=== PATIENT | female | born 1965 | race Caucasian/White ===

== ENCOUNTER → 2016-11-11 | Outpatient (CLI) | payer OTHER | LOC: BRMIMAGING 14:38 | PROVIDERS: ATTEND Family Medicine | DX: Z01.818 Encounter for other preprocedural examination (principal); I51.7 Cardiomegaly; E66.9 Obesity, unspecified | CPT/HCPCS: 71020-PO ==

== ENCOUNTER → 2016-11-13 | Day surgery (SDC) | payer OTHER ==
[~2016-11-13] MED LIST: BACITRACIN 50,000 UNITS/10 ML SYR IRR ONE; BUPIVACAINE 0.25% 30 ML SDV ONE; BUPIVACAINE/EPI 0.25% 30 ML SDV ONE; CEFAZOLIN 2 GM/DEXTROSE/100 ML BAG IV ONE; CHLORHEXIDINE GLUC HIBICLENS 118 ML BTL TP ONE; DEXAMETHASONE 10 MG/ML VIAL IVP ONE; DEXAMETHASONE 10 MG/ML VIAL ONE; LIDOCAINE 1% 5 ML SDV ID PRN; LIDOCAINE 1% 5 ML SDV ONE; LR 1,000 ML IV ONE; THROMBIN (RECOMBINANT) 5,000 UNIT VIAL TP ONE; ceFAZolin 3 GM in D5W 100 ML IV ONE; fentaNYL 100 MCG/2 ML INJ IT ONE; morphINE PF 5 MG/10 ML INJ IT ONE
[2016-11-13 12:22] LABS: % IMMATURE GRANULYOCYTES 0.6 % (0.0-1.1); ABSOLUTE IMMATURE GRANULOCYTES 0.08 10^3/uL (0.00-0.10); ADD DIFF? NO; ADD MORPH? NO; ADD SCAN? NO; ATYPICAL LYMPHOCYTE FLAG 0 (0-99); FRAGMENT RBC FLAG 0 (0-99); HEMATOCRIT 31.7 % (38.0-47.0); HEMOGLOBIN 10.6 g/dL (12.6-16.3); LEFT SHIFT FLG 0 (0-99); LIPEMIA HEMOLYSIS FLAG 80 (0-99); MEAN CELL HEMOGLOBIN 28.6 pg (27.9-34.1); MEAN CELL HEMOGLOBIN CONCENTR. 33.4 g/dL (32.4-36.7); MEAN CELL VOLUME 85.4 fL (81.5-99.8); MEAN PLATELET VOLUME 10.3 fL (8.7-11.7); PLATELET CLUMPS FLAG 0 (0-99); PLATELET COUNT 336 10^3/uL (150-400); RED BLOOD CELL COUNT 3.71 10^6/uL (4.18-5.33); RED CELL DISTRIBUTION WIDTH 14.6 % (11.5-15.2)
[2016-11-13 12:31] LABS: ANION GAP 14 mEq/L (8-16); CALCIUM 7.9 mg/dL (8.5-10.4); CARBON DIOXIDE 31 mEq/l (22-31); CHLORIDE 85 mEq/L (97-110); CREATININE 1.6 mg/dL (0.6-1.0); GLOMERULAR FILTRATION RATE 34; GLUCOSE 336 mg/dL (70-100); SODIUM 130 mEq/L (134-144)
[2016-11-13 12:50] LABS: POTASSIUM 2.7 mEq/L (3.5-5.2)
== END | disposition home or self-care (01) ==
LOC: UNDOADMIN 11:14 → F3N 11:14 → FSGY 11:14 → EDSTATUS 12:45
PROVIDERS: ATTEND Neurological Surgery
DX: Z53.09 Procedure and treatment not carried out because of other contraindication (principal); M51.36 Other intervertebral disc degeneration, lumbar region; Z98.1 Arthrodesis status; G47.33 Obstructive sleep apnea (adult) (pediatric); I10 Essential (primary) hypertension; E89.0 Postprocedural hypothyroidism; Z93.4 Other artificial openings of gastrointestinal tract status; Z85.850 Personal history of malignant neoplasm of thyroid; E11.42 Type 2 diabetes mellitus with diabetic polyneuropathy; Z79.4 Long term (current) use of insulin; E66.2 Morbid (severe) obesity with alveolar hypoventilation; Z99.89 Dependence on other enabling machines and devices; R60.1 Generalized edema; F33.9 Major depressive disorder, recurrent, unspecified; Z68.43 Body mass index [BMI] 50.0-59.9, adult
CPT/HCPCS: J0690

== ENCOUNTER 2016-11-24 12:27 | Inpatient (IN) | payer OTHER ==
--- NOTE | 2016-11-24 13:05 | EDPHY ---
H & P Stated Complaint: increasing sob/o2 requirement/palpitations/gained 30 lbs Time Seen by Provider: 11/24/16 13:01 - Personal History LMP (Females 10-55): Over 28 Days Ago Current Tetanus/Diphtheria Vaccine: Yes - Medical/Surgical History Hx Asthma: No Hx Chronic Respiratory Disease: Yes Hx Diabetes: Yes Hx Cardiac Disease: No Hx Renal Disease: No Hx Cirrhosis: No Hx Alcoholism: No Hx HIV/AIDS: No Hx Splenectomy or Spleen Trauma: No Other PMH: uterine ablation/diabetic/back pain/surgery - Social History Smoking Status: Never smoked Constitutional: Initial Vital Signs Temperature (C) 36.7 C 11/24/16 12:41 Heart Rate 108 H 11/24/16 12:41 Respiratory Rate 28 H 11/24/16 12:41 Blood Pressure 109/52 L 11/24/16 12:41 O2 Sat (%) 96 11/24/16 12:41 O2 Delivery Mode Nasal Cannula O2 (L/minute) 3 Allergies/Adverse Reactions: azithromycin [From Zithromax] Allergy (Verified 11/24/16 12:38) Rash erythromycin base Allergy (Verified 11/24/16 12:38) Rash metoclopramide HCl [From Reglan] Allergy (Verified 11/24/16 12:38) MUSCLE TWITCHES prochlorperazine [From Compazine] Allergy (Verified 11/24/16 12:38) HYPER/ANXIOUS prochlorperazine edisylate [From Compazine] Allergy (Verified 11/24/16 12:38) HYPER/ANXIOUS prochlorperazine maleate [From Compazine] Allergy (Verified 11/24/16 12:38) HYPER/ANXIOUS Home Medications: Medication Instructions Recorded Cholecalciferol Vit D3 [Vitamin D3 50,000 unit PO MOTH 11/17/16 (*)] DULoxetine [Cymbalta 30 MG (*)] 30 mg PO DAILY@12 11/17/16 DULoxetine [Cymbalta 60 MG (*)] 60 mg PO DAILY@12 11/17/16 Hydrocodone/Acetaminophen 7.5-325 15 ml PO Q4H PRN 11/17/16 Mg/ 15 Ml Syrup Insulin Aspart [Novolog Flexpen] 5 - 40 unit SQ Q4H PRN 11/17/16 Insulin Degludec [Tresiba 320 unit SQ DAILY 11/17/16 Flextouch U-200] LORazepam [Ativan (*)] 0.5 mg PO Q6H PRN 11/17/16 Levothyroxine [Synthroid 150 mcg 450 mcg PO DAILY06 11/17/16 (*)] Liothyronine Sodium [Cytomel 5 mcg 5 mcg PO DAILY 11/17/16 (*)] Losartan Potassium [Cozaar] 100 mg PO DAILY 11/17/16 Metolazone [Zaroxolyn 2.5 mg (RX)] 2.5 mg PO DAILY 11/17/16 Omeprazole 40 mg PO BID 11/17/16 Potassium Citrate/Citric Acid 15 ml PO 5XD 11/17/16 [Virtrate-K Solution] Promethazine HCl 25 mg PO Q4H 11/17/16 Torsemide [Demadex] 80 mg PO BID 11/17/16 amLODIPine BESYLATE [Norvasc 5 mg 5 mg PO DAILY 11/17/16 (*)] Medical Decision Making ED Course/Re-evaluation: CHIEF COMPLAINT: Dyspnea, rapid heart rate, 30lb weight gain HISTORY OF PRESENT ILLNESS: The patient is a 51 y/o female complaining of shortness of breath, rapid heart rate, and 30lb weight gain in the last week. She has a history of morbid obesity, diabetes, and peripheral edema. She reports she was scheduled for a back surgery here 2 weeks ago, but her potassium was low so it was rescheduled and her PCP increased her potassium dosing. She has not changed her diuretic medications and cannot identify any other obvious preceding changes in the last week that would lead to increasing edema. She reports a similar episode in March 2016 with no obvious cause. REVIEW OF SYSTEMS: A 10 point review of systems was performed and is negative with the exception of the elements mentioned in the history of present illness. PHYSICAL EXAM: HR, BP, O2 Sat, RR. Temp noted General Appearance: Alert, well hydrated, appropriate, and morbidly obese. Head: Atraumatic without scalp tenderness or obvious injury Eyes: Pupils equal, round, reactive to light and accommodation, EOMI, no trauma , no injection. Ears: Clear bilaterally, no perforation, normal landmarks Nose: Atraumatic, no rhinorrhea, clear. Throat: There is no erythema or exudates, no lesions, normal tonsils, mucus membranes moist. Neck: Supple, 2+ carotid upstroke, nontender, no lymphadenopathy. Respiratory: No retractions, no distress, no wheezes, and no accessory muscle use. Lungs are clear to auscultation bilaterally. Cardiovascular: Regular rate and rhythm, no murmurs, rubs, or gallops. Bilateral carotid, radial, dorsalis pedis, and posterior tibial pulses intact. Good capillary refill all extremities. Gastrointestinal: Abdomen is soft, nontender, non-distended, no masses, no rebound, no guarding, no peritoneal signs. Large abdomen. Musculoskeletal: Normal active ROM of all extremities, atraumatic. Neurological: Alert, appropriate, and interactive. The patient has normal DTRs and non-focal cranial nerves, motor, sensory, and cerebellar exam. Skin: No rashes, good turgor, no nodules on palpation. 2+ pitting edema to both legs; anasarca; cellulitis to bilateral lower legs. Past medical history: Morbid obesity, diabetes, peripheral edema, back pain, one episode atrial fibrillation Past surgical history: gastric bypass, uterine ablation Family history: Noncontributory Social history: Lives in [place] DIAGNOSTICS/PROCEDURES/CRITICAL CARE TIME: The 12 lead EKG was interpreted by myself. See hard copy and/or "tracemaster" electronic copy for interpretation. Study: Chest x-ray Indication: Dyspnea Results: Chest x-ray was obtained. The results of the study are cardiomegaly. The study was read by the radiologist, Dr. Zepeda. I viewed the images myself on the PACS system. ECHOCARDIOGRAPHY: Indication: chest pain,SOB Procedure: Limited transthoracic 2D echocardiogram. A limited transthoracic echocardiogram was performed by the echocardiogram technologists and interpreted by Dr. Cm. Results pending. DIFFERENTIAL DIAGNOSIS: The differential diagnosis for the patient's leg swelling included but was not limited to hypoalbuminemia, congestive heart failure, cor pulmonale, venous stasis, trauma, and DVT. MEDICAL DECISION MAKING: This is a morbidly obese 51 y/o female presenting with rapid heart right and significant pedal edema complaining of 30lb weight gain in the last 30 days. She reports her weight is around 350 today and she is unable to walk much due to dyspnea and the weight of her legs. She has gross anasarca on exam with bilateral pitting edema. Her rate on the monitor was irregular in the 160-180 rate during assessment. She spontaneously converted to sinus tachycardia in the 110-120 during exam. Plan for cardiac work up and we will attempt to pull some of the fluid off. IV established. Labs drawn including CBC, CHEM, BNP Mg, troponin. 1gm IV Cefazolin, 60mg IV Lasix, and 200mcg IV Nitro drip administered. Chest x-ray and EKG ordered. Will consult cardiology. 1320: Consulted with Dr. Cm, cardiopulmonary specialist, in the ED. He will assess patient in the ED. He recommends echocardiogram. 1457: Spoke with hospitalist service. Chest x-ray shows cardiomegaly without CHF. She is prerenally dehydrated. Dr. Washington accepts admission. Echo is pending. - Data Points Laboratory Results: Laboratory Results 11/24/16 13:20 11/24/16 13:20 11/24/16 11/24/16 11/24/16 13:20 13:20 13:20 WBC 13.50 10^3/uL H 10^3/uL (3.80-9.50) RBC 3.71 10^6/uL L 10^6/uL (4.18-5.33) Hgb 10.8 g/dL L g/dL (12.6-16.3) Hct 33.2 % L % (38.0-47.0) MCV 89.5 fL fL (81.5-99.8) MCH 29.1 pg pg (27.9-34.1) MCHC 32.5 g/dL g/dL (32.4-36.7) RDW 15.5 % H % (11.5-15.2) Plt Count 340 10^3/uL 10^3/uL (150-400) MPV 10.6 fL fL (8.7-11.7) Neut % (Auto) 76.9 % H % (39.3-74.2) Lymph % (Auto) 11.9 % L % (15.0-45.0) [place] % (Auto) 7.7 % % (4.5-13.0) Eos % (Auto) 2.4 % % (0.6-7.6) Baso % (Auto) 0.4 % % (0.3-1.7) Nucleat RBC Rel Count 0.0 % % (0.0-0.2) Absolute Neuts (auto) 10.38 10^3/uL H 10^3/uL (1.70-6.50) Absolute Lymphs (auto) 1.61 10^3/uL 10^3/uL (1.00-3.00) Absolute Monos (auto) 1.04 10^3/uL H 10^3/uL (0.30-0.80) Absolute Eos (auto) 0.33 10^3/uL 10^3/uL (0.03-0.40) Absolute Basos (auto) 0.05 10^3/uL 10^3/uL (0.02-0.10) Absolute Nucleated RBC 0.00 10^3/uL 10^3/uL (0-0.01) Immature Gran % 0.7 % % (0.0-1.1) Immature Gran # 0.09 10^3/uL 10^3/uL (0.00-0.10) PT 13.1 SEC SEC (12.0-15.0) INR 1.00 (0.83-1.16) APTT 32.3 SEC SEC (23.0-38.0) Sodium 132 mEq/L L mEq/L (134-144) Potassium 3.6 mEq/L mEq/L (3.5-5.2) Chloride 78 mEq/L L mEq/L (97-110) Carbon Dioxide 38 mEq/l H mEq/l (22-31) Anion Gap 16 mEq/L mEq/L (8-16) BUN 46 mg/dL H mg/dL (7-23) Creatinine 1.3 mg/dL H mg/dL (0.6-1.0) Estimated GFR 43 Glucose 271 mg/dL H mg/dL (70-100) Calcium 8.5 mg/dL mg/dL (8.5-10.4) Magnesium 1.9 mg/dL mg/dL (1.6-2.3) Troponin I 0.013 ng/mL ng/mL (0-0.034) NT-Pro-B Natriuret Pep 100 pg/mL pg/mL (0-125) Urine Color Urine Appearance Urine pH Ur Specific [place] Urine Protein Urine Ketones Urine Blood Urine Nitrate Urine Bilirubin Urine Urobilinogen Ur Leukocyte Esterase Ur Culture Indicated? Ur Random Creatinine U Random Total Protein Urine Glucose 11/24/16 13:00 WBC RBC Hgb Hct MCV MCH MCHC RDW Plt Count MPV Neut % (Auto) Lymph % (Auto) [place] % (Auto) Eos % (Auto) Baso % (Auto) Nucleat RBC Rel Count Absolute Neuts (auto) Absolute Lymphs (auto) Absolute Monos (auto) Absolute Eos (auto) Absolute Basos (auto) Absolute Nucleated RBC Immature Gran % Immature Gran # PT INR APTT Sodium Potassium Chloride Carbon Dioxide Anion Gap BUN Creatinine Estimated GFR Glucose Calcium Magnesium Troponin I NT-Pro-B Natriuret Pep Urine Color Pending Urine Appearance Pending Urine pH Pending Ur Specific [place] Pending Urine Protein Pending Urine Ketones Pending Urine Blood Pending Urine Nitrate Pending Urine Bilirubin Pending Urine Urobilinogen Pending Ur Leukocyte Esterase Pending Ur Culture Indicated? Pending Ur Random Creatinine Pending U Random Total Protein Pending Urine Glucose Pending Medications Given: Discontinued Medications Furosemide (Lasix Injection) 60 mg IVP EDNOW ONE Stop: 11/24/16 13:24 Last Admin: 11/24/16 13:53 Dose: 60 mg Nitroglycerin/Dextrose (Nitroglycerin 200 Mcg/Ml (Premix)) 250 mls @ 0 mls/hr IV CONT ONE; Titrate PRN Reason: Protocol Stop: 11/24/16 13:18 Last Admin: 11/24/16 13:53 Dose: 250 mls Cefazolin Sodium/Dextrose (Ancef 1 Gm (Premix)) 50 mls @ 200 mls/hr IV EDNOW ONE PRN Reason: Protocol Stop: 11/24/16 13:38 Last Admin: 11/24/16 14:00 Dose: 50 mls Departure - Departure Disposition: [facility] Inpatient Acute Clinical Impression: Pedal edema, transient SVT vs. afib, Bilateral lower leg cellulitis Dysrhythmia Qualifiers: Arrhythmia type: supraventricular tachycardia Qualified Code(s): I47.1 - Supraventricular tachycardia Dyspnea Qualifiers: Dyspnea type: shortness of breath Qualified Code(s): R06.02 - Shortness of breath Fluid overload Qualifiers: Hypervolemia type: other Qualified Code(s): E87.79 - Other fluid overload Condition: Fair Referrals: KING SAMAYOA [Primary Care Provider] - As per Instructions Report Scribed for: Everton Mckeon Report Scribed by: Daniela Langley Date of Report: 11/24/16 Time of Report: 13:19
[2016-11-24] MEDS ORDERED: NITROGLYCERIN/DEXTROSE 250 ML IV ONE (13:17)
[2016-11-24] MEDS ORDERED: FUROSEMIDE 40 MG/4 ML VIAL IVP ONE ×2 (13:23→20:00)
[2016-11-24 13:36] LABS: % IMMATURE GRANULYOCYTES 0.7 % (0.0-1.1); ABSOLUTE IMMATURE GRANULOCYTES 0.09 10^3/uL (0.00-0.10); ADD DIFF? NO; ADD MORPH? NO; ADD SCAN? NO; ATYPICAL LYMPHOCYTE FLAG 0 (0-99); FRAGMENT RBC FLAG 10 (0-99); HEMATOCRIT 33.2 % (38.0-47.0); HEMOGLOBIN 10.8 g/dL (12.6-16.3); LEFT SHIFT FLG 0 (0-99); LIPEMIA HEMOLYSIS FLAG 80 (0-99); MEAN CELL HEMOGLOBIN 29.1 pg (27.9-34.1); MEAN CELL HEMOGLOBIN CONCENTR. 32.5 g/dL (32.4-36.7); MEAN CELL VOLUME 89.5 fL (81.5-99.8); MEAN PLATELET VOLUME 10.6 fL (8.7-11.7); PLATELET CLUMPS FLAG 20 (0-99); PLATELET COUNT 340 10^3/uL (150-400); RED BLOOD CELL COUNT 3.71 10^6/uL (4.18-5.33); RED CELL DISTRIBUTION WIDTH 15.5 % (11.5-15.2)
[2016-11-24 13:47] LABS: PROTIME(PATIENT) 13.1 SEC (12.0-15.0)
[2016-11-24 13:48] LABS: APTT 32.3 SEC (23.0-38.0)
[2016-11-24 13:53] LABS: ANION GAP 16 mEq/L (8-16); CALCIUM 8.5 mg/dL (8.5-10.4); CARBON DIOXIDE 38 mEq/l (22-31); CHLORIDE 78 mEq/L (97-110); CREATININE 1.3 mg/dL (0.6-1.0); GLOMERULAR FILTRATION RATE 43; GLUCOSE 271 mg/dL (70-100); MAGNESIUM 1.9 mg/dL (1.6-2.3); POTASSIUM 3.6 mEq/L (3.5-5.2); SODIUM 132 mEq/L (134-144)
[2016-11-24 14:06] LABS: TROPONIN I 0.013 ng/mL (0-0.034)
[2016-11-24] MEDS ORDERED: FUROSEMIDE 20 MG/2 ML VIAL ONE ×2 (14:10→19:26)
[2016-11-24] MEDS ORDERED: PROMETHAZINE HCL 25 MG/ML INJ ONE (14:11)
[2016-11-24] MEDS ORDERED: PROMETHAZINE HCL 25 MG/ML INJ IVP ONE (14:15)
[2016-11-24 15:09] LABS: COLOR PALE YELLOW; LEUKOCYTE ESTERASE,URINE NEGATIVE (NEGATIVE); NITRITE,URINE NEGATIVE (NEGATIVE)
[2016-11-24 15:14] LABS: BACTERIA TRACE /hpf (NONE SEEN); RBC,URINE NONE SEEN /hpf (0-3)
--- NOTE | 2016-11-24 15:16 | CPEKG ---
Heart Rate: 112 RR Interval: 536 P-R Interval: 148 QRSD Interval: 84 QT Interval: 332 QTC Interval: 453 P [place]: 69 QRS [place]: 97 T Wave [place]: -43 EKG Severity - ABNORMAL ECG - EKG Impression: SINUS TACHYCARDIA EKG Impression: BORDERLINE RIGHT AXIS DEVIATION EKG Impression: NONSPECIFIC T ABNORMALITIES, DIFFUSE LEADS Electronically Signed By: Everton Mckeon 24-Nov-2016 15:18:59
[2016-11-24] MEDS ORDERED: ONDANSETRON 4 MG/2 ML VIAL IVP PRN (15:24)
[2016-11-24] MEDS ORDERED: ONDANSETRON DISINTEGRATING 4 MG TAB PO PRN (15:24)
[2016-11-24] MEDS ORDERED: ACETAMINOPHEN 325 MG TAB PO PRN (15:24)
[2016-11-24] MEDS ORDERED: D50W 25 GM/50 ML SYR IVP PRN (15:26)
[2016-11-24 16:49] LABS: BILIRUBIN,TOTAL 0.6 mg/dL (0.1-1.4); BILIRUBIN-CONJUGATED 0.5 mg/dL (0.0-0.5); BILIRUBIN-UNCONJUGATED 0.1 mg/dL (0.0-1.1); TOTAL PROTEIN 7.3 g/dL (6.3-8.2)
--- NOTE | 2016-11-24 17:20 | GHP ---
DATE OF ADMISSION: 11/24/2016 CHIEF COMPLAINT: Volume overload, lower extremity swelling. PRIMARY PHYSICIAN: Dr. Flowers at [facility]. HISTORY OF PRESENT ILLNESS: a 51-year-old female with history of type 2 diabetes, JANIE on CPAP, chronic hypoxemic respiratory failure, and lower extremity edema, presenting with significant lower extremity swelling. Reports gaining 25 pounds in the past week, which she attributes to water. She had a lumbar spinal fusion surgery planned 10 days ago, but potassium was low at that time, thus, that was postponed. She saw her PCP on this last Thursday and said her weight was 321 pounds, which is the best it has been. Swelling at that time was well-controlled. Reports compliance with torsemide and metolazone. She has been having urine output, but more dribbling. Had 3 episodes of substernal chest pressure this week that lasted only a minute without associated diaphoresis, radiation, shortness of breath, nausea, or vomiting. No increased SOB and no increase in oxygen at home. She was hospitalized June 2016 at [facility] for the same issue as well as 3 times from March to June at [facility]. She complains of constant nausea since a failed gastric bypass surgery for which she takes scheduled promethazine q.4 hours. She has chronic choking and specifically with the liquids, especially water, that has been occurring for the past 2 years, but worse over the last week. [place] hot yesterday. She noticed increased redness of both legs, but denies fevers, chills, or sweats. No open lesions. The patient has been complaining of intermittent diarrhea for the past week, some undigested foods. No recent antibiotics. REVIEW OF SYSTEMS: I completed a 10-point review of systems. Negative, except as noted in HPI. PAST MEDICAL HISTORY: 1. Lower extremity edema. 2. JANIE on CPAP. 3. Chronic hypoxemic respiratory failure on 4 L. 4. Type 2 diabetes. 5. History of thyroid cancer. 6. Lower extremity edema. PAST SURGICAL HISTORY: 1. Failed gastric bypass surgery in 2011 with a revision in August 2012. 2. Thyroidectomy. 3. GJ tube placement. 4. Ulnar surgery on the right arm. FAMILY HISTORY: Mother with type 1 diabetes, possible [place]. Father is healthy. SOCIAL HISTORY: Lives in [place] along with her 3 dogs. No illicits, tobacco or alcohol. ALLERGIES: Azithromycin, erythromycin, Reglan, Compazine, prochlorperazine. HOME MEDICATIONS: 1. Norvasc 5 mg daily. 2. Torsemide 80 mg b.i.d. 3. Promethazine 25 mg p.o. q.4 hours per tube. 4. Potassium 15 mL 5 times a day. 5. Omeprazole 40 mg b.i.d. 6. Metolazone 2.5 mg daily. 7. Losartan 100 mg daily. 8. Cytomel 5 mcg daily. 9. Levothyroxine 450 mcg daily. 10. Ativan 0.5 mg q.6 hours p.r.n. 11. Tresiba FlexTouch U 200 at 340 units subcu daily. 12. NovoLog 5 to 40 units sliding scale. 13. Hydrocodone Tylenol 7.5/325/15 mL q.4 hours p.r.n. 14. Cymbalta 90 mg daily. 15. Vitamin D3 50,000 units monthly. PHYSICAL EXAMINATION: VITAL SIGNS: Temperature 36.9, blood pressure is 127/69 , heart rate 108 to 130s, respirations 18-23, 95% on 3 L. GENERAL: The patient is obese, appears uncomfortable lying flat in bed. HEENT: PERRLA. EOMI. Oropharynx clear. Moist mucous membranes. CV: Regular rate and rhythm. No murmurs, gallops, or rubs. JVD elevated to mandible. LUNGS: Clear to auscultation bilaterally. EXTREMITIES: +2 to 3 lower extremity edema , pitting up to the ocampo. GI: A GJ tube in place with mild erythema surrounding it, but no purulence. Abdomen is obese, soft, nontender, nondistended. : No suprapubic tenderness. MUSCULOSKELETAL: Moving all 4 extremities. SKIN: Bilateral leg erythema to [place], mildly warm. No open lesions or purulence. NEURO: 2 through 12 intact. PSYCH: Alert and oriented x3. LABS: Sodium is 132, potassium 3.6, chloride 78, carbon dioxide is 38, creatinine is 1.3 (prior here is 1.6), glucose 271, calcium 8.5, magnesium 1.9. Troponin 0.13. BNP is 100. Urine: Trace bacteria, +3 glucose. INR is 1. PT is 13. WBC 13, hemoglobin is 10, hematocrit is 33, platelets are 340. EKG: personally reviewed by me. Sinus tachycardia. CXR: personally reviewed by me. Cardiomegaly, no opacity or overt fluid. ASSESSMENT/PLAN: 1. Volume overload: has been compliant with her diuretics. Suspect right heart failure with underlying JANIE. Troponin and EKG are negative for ischemia here. Repeat both of those and monitor on telemetry.TTE is pending. Cont diuresis with Lasix IV while here. Low sodium 2 L fluid restriction and strict I's and O 's. Monitor electrolytes closely. Obtain records from [facility] and PCP 2. Chronic hypoxemic respiratory failure, stable on 3. No edema on chest x- ray. 3. Obesity: counseled on diet and exercise. Nutrition consult. 4. Chronic nausea: Suspect secondary to her complicated bypass surgery in the past. We will resume promethazine. 5. Uncontrolled diabetes. continue Tresiba and SSI. 6. JANIE: continue CPAP. 7. History of thyroid cancer: status post thyroidectomy. Cytomel and levothyroxine. 8. Chronic back pain: supposed to have a lumbar spinal fusion a couple weeks ago, but this has been postponed due to electrolyte abnormalities. Continue home pain medications. 9. Diarrhea: suspect this is related to several bypass surgeries. No recent antibiotics. Will monitor closely. 10. Mild leukocytosis: No evidence of pneumonia on chest x-ray and negative UA. Denies other infectious symptoms besides the diarrhea. If persistent, would consider checking a Clostridum difficile. She does have some erythema of lower extremities, but suspect this is due to volume since it is bilateral. If fevers, would check blood cultures and start IV antibiotics. 11. Chronic kidney disease. Her creatinine today is 1.3, unknown baseline. We will obtain records from [facility] and her PCP. Monitor closely with diuresis 12. Tachycardia: NSR on EKG. Reports a fib in past perioperatively. Telemetry, TSH and TTE pending. CHADS score 3; consider anticoagulation for paroxsymal a fib. 13. Diet: Cardiac, diabetic, 2 L fluid restriction. 14. Deep vein thrombosis prophylaxis, medium to high risk. SQH with [facility]. . DISPOSITION: Patient warrants inpatient admission given acute volume overload warranting IV diuresis, electrolyte replacement and telemetry. /[id number]/MODL MTDD
[2016-11-24] MEDS: HYDROCOD/APAP 7.5/325 IN 15ML UDCUP PO PRN ×2 (17:44→22:04)
[2016-11-24] MEDS: INSULIN LISPRO 100 UNIT/ML SC SCH (17:45)
[2016-11-24] MEDS: POTASSIUM CL 20 MEQ/15 ML UDCUP TUBE ONE ×2 (17:45→18:10)
[2016-11-24] MEDS: PROMETHAZINE HCL 25 MG TAB TUBE PRN ×2 (17:46→22:04)
[2016-11-24] MEDS ORDERED: INSULIN LISPRO 100 UNIT/ML SC SCH (18:00)
[2016-11-24] MEDS ORDERED: LORazepam 0.5 MG TAB PO PRN (18:17)
[2016-11-24] MEDS ORDERED: POTASSIUM CL 20 MEQ/15 ML UDCUP TUBE ONE (18:30)
--- NOTE | 2016-11-24 19:03 | ECHO ---
[id number] + + [address] : : [place] [address] : : [phone] + + Adult Echocardiographic Report + -------+ :Name: FLACA BRO JStudy Date: 11/24/2016 02:49 PM : : Hospital Admission Number: [id number] Locat ion: ER: :: 1965 Gender: Female : :Age: 51 yrs Race: WH : :Reason For Study: Chest pain : + -------+ MMode/2D Measurements \T\ Calculations Ao root diam: 3.4 cm Normal Measurement Values: + + :LVIDd (3.5-5.7cm) IVSd (0.6-1.1cm) LVPWd (0.6-1.1cm) Aortic Root (2.0-3.7cm)Left Atrium (1.5-4.0cm): :LV Vol(d) (76-115ml) LV Vol(s) (29-48ml) Ejec Fraction (50-65%)PV Bob (0.6- 1.2m/s) TV Bob (0.4-1.0m/s) : :MV E Obb (0.8-1.0m/s)MV A Bob (0.3-1.0m/s)LVOT Bob (0.7-1.2m/s) Asc Ao Bob ( 0.9-1.8m/s) : + + Doppler Measurements \T\ Calculations MV E max bob: 106.0 cm/sec Ao V2 max: 175.0 cm/sec MV A max bob: 124.0 cm/sec Ao max P.3 mmHg MV E/A: 0.85 Left Ventricle The left ventricle is hyperdynamic. Pericardium/Pleural There is a fat pad seen. Conclusion 2-D echo. Technically dificult study due to patient's obesity. The left ventricle is hyperdynamic. Final Reading Physician: Blade Cao signed on 11/24/2016 07:01 PM Ordering Physician: Everton Mckeon Performed By: Kathryn Bonilla RDCS
--- NOTE | 2016-11-24 19:57 | CPEKG ---
Heart Rate: 106 RR Interval: 566 P-R Interval: 156 QRSD Interval: 96 QT Interval: 368 QTC Interval: 489 P [place]: 70 QRS [place]: 89 T Wave [place]: 12 EKG Severity - ABNORMAL ECG - EKG Impression: SINUS TACHYCARDIA EKG Impression: ANTEROLATERAL INFARCT, ACUTE GIVEN THE MINIMAL ST ELEVATION TO V1-V2 NOTED EKG Impression: BORDERLINE PROLONGED QT INTERVAL Electronically Signed By: Brandon Billingsley 25-Nov-2016 16:52:01
--- NOTE | 2016-11-24 20:56 | CPEKG ---
Heart Rate: 107 RR Interval: 561 P-R Interval: 156 QRSD Interval: 92 QT Interval: 372 QTC Interval: 497 P [place]: 61 QRS [place]: 90 T Wave [place]: 12 EKG Severity - BORDERLINE ECG - EKG Impression: SINUS TACHYCARDIA EKG Impression: ATRIAL PREMATURE COMPLEX EKG Impression: BORDERLINE RIGHT AXIS DEVIATION EKG Impression: BORDERLINE PROLONGED QT INTERVAL Electronically Signed By: Brandon Billingsley 25-Nov-2016 16:52:14
[2016-11-24] MEDS ORDERED: HEPARIN 5,000 UNIT/0.5 ML SYR SC SCH (22:00)
--- NOTE | 2016-11-25 00:41 | CPEKG ---
Heart Rate: 153 RR Interval: 392 QRSD Interval: 88 QT Interval: 292 QTC Interval: 466 QRS [place]: 95 T Wave [place]: -63 EKG Severity - ABNORMAL ECG - EKG Impression: ATRIAL FIBRILLATION EKG Impression: PROBABLE ANTEROSEPTAL INFARCT, AGE INDETERM EKG Impression: NONSPECIFIC T ABNORMALITIES, INFERIOR LEADS EKG Impression: LATERAL LEADS ARE ALSO INVOLVED EKG Impression: ATRIAL FIBIS NEW IN COMPARISON TO PRIOR ECG Electronically Signed By: Brandon Billingsley 27-Nov-2016 08:43:14
[2016-11-25] MEDS ORDERED: HEPARIN 10,000 UNIT/10 ML MDV IVP ONE (00:57)
[2016-11-25] MEDS ORDERED: HEPARIN 10,000 UNIT/10 ML MDV IVP PRN (00:57)
[2016-11-25] MEDS ORDERED: DILTIAZEM 125 MG in D5W 125 ML IV SCH (01:00)
[2016-11-25] MEDS ORDERED: DILTIAZEM 25 MG/5 ML VIAL IVP SCH (01:00)
[2016-11-25] MEDS ORDERED: HEPARIN/DEXTROSE 500 ML IV SCH (01:00)
[2016-11-25 01:56] LABS: TROPONIN I 0.013 ng/mL (0-0.034)
[2016-11-25] MEDS: PROMETHAZINE HCL 25 MG TAB TUBE PRN ×2 (02:02→08:06)
[2016-11-25] MEDS: DILTIAZEM 30 MG TAB PO SCH ×4 (02:43→17:51)
--- NOTE | 2016-11-25 04:57 | HOSPPROG ---
Hospitalist Progress Note Assessment/Plan: XC note: Notified by RN of tachycardia in 150's, sustained. STAT EKG revealed A fib with RVR. Pt states she has had this before in post-operative setting though it did not persist. She has not been anti-coagulated in the past for this. With onset here, she reports some chest pressure, but denies SOB or palpitations. A fib with RVR: Transfer to PCU. IV Dilt bolus / gtt ordered, along with Heparin drip given her chest pressure and rapid A fib. Pt spontaneously converted back to NSR. Will continue with oral Diltiazem 30 mg q6h. She has maintained sinus through most of the night and trop neg x2, will d/c heparin. Chads-vasc score 3. May need to consider adjunct faculty for medical terminology anti-coagulation for paroxysmal A fib. She also has h/o thyroidectomy, on replacement. TSH pending. Echo done, no valve disease on prelim report. Objective: Vital Signs Temp Pulse Resp BP Pulse Ox 37.0 C 96 18 129/51 H 96 11/25/16 02:58 11/25/16 02:58 11/25/16 02:58 11/25/16 02:58 11/25/16 02:58 11/23/16 11/24/16 11/25/16 05:59 05:59 05:59 Intake Total 300 Output Total 2220 Balance -1920 PT 13.1 SEC (12.0-15.0) 11/24/16 13:20 INR 1.00 (0.83-1.16) 11/24/16 13:20 ICD10 Worksheet Patient Problems: Problems Problem Status Onset Bilateral lower leg cellulitis Acute Dyspnea Acute Dysrhythmia Acute Fluid overload Acute Pedal edema Acute
[2016-11-25] MEDS: HYDROCOD/APAP 7.5/325 IN 15ML UDCUP PO PRN ×3 (04:59→20:48)
[2016-11-25 05:37] LABS: % IMMATURE GRANULYOCYTES 0.7 % (0.0-1.1); ABSOLUTE IMMATURE GRANULOCYTES 0.08 10^3/uL (0.00-0.10); ADD DIFF? NO; ADD MORPH? NO; ADD SCAN? NO; ATYPICAL LYMPHOCYTE FLAG 0 (0-99); FRAGMENT RBC FLAG 0 (0-99); HEMATOCRIT 29.8 % (38.0-47.0); HEMOGLOBIN 9.7 g/dL (12.6-16.3); LEFT SHIFT FLG 0 (0-99); LIPEMIA HEMOLYSIS FLAG 80 (0-99); MEAN CELL HEMOGLOBIN 29.1 pg (27.9-34.1); MEAN CELL HEMOGLOBIN CONCENTR. 32.6 g/dL (32.4-36.7); MEAN CELL VOLUME 89.5 fL (81.5-99.8); MEAN PLATELET VOLUME 10.8 fL (8.7-11.7); PLATELET CLUMPS FLAG 10 (0-99); PLATELET COUNT 300 10^3/uL (150-400); RED BLOOD CELL COUNT 3.33 10^6/uL (4.18-5.33); RED CELL DISTRIBUTION WIDTH 15.5 % (11.5-15.2)
[2016-11-25 05:44] LABS: ANION GAP 14 mEq/L (8-16); CALCIUM 8.1 mg/dL (8.5-10.4); CARBON DIOXIDE 40 mEq/l (22-31); CHLORIDE 83 mEq/L (97-110); CREATININE 1.2 mg/dL (0.6-1.0); GLOMERULAR FILTRATION RATE 47; GLUCOSE 203 mg/dL (70-100); POTASSIUM 2.8 mEq/L (3.5-5.2); SODIUM 137 mEq/L (134-144)
[2016-11-25 05:56] LABS: TROPONIN I 0.015 ng/mL (0-0.034)
[2016-11-25] MEDS ORDERED: PROTOCOL POTASSIUM 1 DOSE MISC PRN (08:42)
[2016-11-25] MEDS ORDERED: FUROSEMIDE 40 MG/4 ML VIAL IVP SCH ×3 (09:00)
[2016-11-25] MEDS ORDERED: FUROSEMIDE 80 MG in D5W 50 ML IV SCH (09:00)
[2016-11-25] MEDS ORDERED: POTASSIUM CL 10 MEQ TAB PO ONE (09:23)
[2016-11-25] MEDS ORDERED: POTASSIUM CL 20 MEQ/15 ML UDCUP TUBE ONE (09:30)
[2016-11-25] MEDS ORDERED: HYDROCODONE PO PRN (09:55)
[2016-11-25] MEDS ORDERED: LORazepam 0.5 MG TAB PO PRN (09:55)
[2016-11-25] MEDS ORDERED: Insulin Aspart [Novolog Flexpen] SQ PRN (09:55)
[2016-11-25] MEDS ORDERED: ACETAMINOPHEN PO PRN (09:55)
[2016-11-25] MEDS ORDERED: POTASSIUM CITRATE PO SCH (10:00)
[2016-11-25] MEDS ORDERED: CITRIC ACID PO SCH (10:00)
[2016-11-25] MEDS ORDERED: INSULIN DEGLUDEC SQ SCH (10:00)
[2016-11-25] MEDS ORDERED: PROMETHAZINE HCL 25 MG PO SCH (10:00)
[2016-11-25] MEDS: INSULIN LISPRO 100 UNIT/ML SC SCH ×3 (10:54→17:51)
[2016-11-25] MEDS: DULoxetine 60 MG CAP PO SCH ×2 (10:54→10:55)
[2016-11-25] MEDS: DULoxetine 30 MG CAP PO SCH (10:55)
[2016-11-25] MEDS: METOLAZONE 2.5 MG TAB PO SCH (10:56)
[2016-11-25] MEDS: Insulin Degludec [Tresiba Flextouch U-200] SQ SCH (11:00)
[2016-11-25] MEDS ORDERED: FUROSEMIDE 100 MG/10 ML VIAL IVP ONE (11:30)
[2016-11-25] MEDS ORDERED: FUROSEMIDE 80 MG in D5W 50 ML IV ONE (12:00)
[2016-11-25] MEDS: PROMETHAZINE HCL 25 MG TAB PO SCH ×3 (13:03→21:55)
--- NOTE | 2016-11-25 13:40 | HOSPPROG ---
Hospitalist Progress Note Assessment/Plan: This is a 51-year-old female with morbid obesity and chronic low back pain presenting with: # acute on chronic lower extremity edema likely due to acute diastolic heart failure in the setting of atrial fibrillation with rapid ventricular response # severe hypokalemia in the setting of high dose diuretic therapy # acute on chronic hypoxemic respiratory failure # chronic nausea # insulin-dependent type 2 diabetes mellitus with poorly controlled blood sugars # obstructive sleep apnea # history of thyroid cancer status post thyroidectomy # chronic low back pain # chronic diarrhea # chronic kidney disease Plan -Continue IV Lasix -replace potassium per protocol - will consider adding Aldactone - continue oral diltiazem for AFib rate control - consult Cardiology regarding new onset atrial fibrillation and to discuss anticoagulation which should be started after her back surgery which is planned for early next week - monitor renal function - will continue inpatient care given her massive edema requiring IV diuretics Subjective: reports improved leg swelling. resolved palpitations. no chest pain. no fevers or chills Objective: Vital Signs Temp Pulse Resp BP Pulse Ox 36.6 C 94 17 117/33 L 96 11/25/16 12:00 11/25/16 12:00 11/25/16 12:00 11/25/16 12:00 11/25/16 12:00 Laboratory Results 11/25/16 05:00 11/25/16 05:00 11/24/16 11/25/16 11/26/16 05:59 05:59 05:59 Intake Total 300 500 Output Total 2520 1200 Balance -2220 -700 PT 13.1 SEC (12.0-15.0) 11/24/16 13:20 INR 1.00 (0.83-1.16) 11/24/16 13:20 - Physical Exam Constitutional: no apparent distress, appears nourished, not in pain, obese Ears, Nose, Mouth, Throat: moist mucous membranes, hearing normal, ears appear normal, no oral mucosal ulcers Cardiovascular: regular rate and rhythym, no murmur, rub, or gallop, edema, No JVD Respiratory: no respiratory distress, no rales or rhonchi, clear to auscultation , reduced air movement, No inspiratory crackles Gastrointestinal: normoactive bowel sounds, soft, non-tender abdomen, no palpable masses, No guarding, No rebound Skin: erythema ( mild erythema over right lower leg suspect stasis dermatitis) Neurologic: AAOx3, sensation intact bilaterally ICD10 Worksheet Patient Problems: Problems Problem Status Onset Pedal edema Acute Dysrhythmia Acute Dyspnea Acute Fluid overload Acute Bilateral lower leg cellulitis Acute
[2016-11-25] MEDS: POTASSIUM CITRATE PO SCH ×3 (15:00→21:56)
[2016-11-25] MEDS: CITRIC ACID PO SCH ×3 (15:00→21:56)
[2016-11-25] MEDS: SPIRONOLACTONE 25 MG TAB PO SCH (15:54)
--- NOTE | 2016-11-25 16:24 | GCON ---
CARDIOLOGY CONSULT DATE OF CONSULTATION: 11/25/2016 CHIEF COMPLAINT: Atrial fibrillation. HISTORY OF PRESENT ILLNESS: We were asked by Dr. Boyer to visit with the patient. The patient is a 51-year-old female with morbid obesity, chronic hypoxic respiratory failure, sleep apnea on CPAP, d iabetes, paroxysmal atrial fibrillation. She has recently had problems with hypokalemia, presumably related to torsemide and metolazone, whic h she takes for lower extremity edema and diastolic left heart and right heart failure. She was sup posed to have lumbar spine surgery last week, but this was canceled due to the hypokalemia. She has since been seeing her primary care with increase in her potassium supplementation. Over the past f ew days, she has had increasing dyspnea, increasing oxygen requirement, significant weight gain, and intermittent palpitations described as rapid onset tachycardia. She therefore presented to the ER yesterday evening. Initially, she was in sinus rhythm but did have brief bouts of atrial fibrillati on in the department. She was admitted for diuresis as she appeared markedly volume overloaded. Ea rly this morning, she did have a more prolonged episode of atrial fibrillation with rapid ventricula r response. She converted to sinus rhythm with a diltiazem bolus. She was started on oral diltiaze m. Today, she reports feeling a little bit better. Her shortness of breath has slightly improved. She has not had syncope at home. She does state that she has chest pressure when she goes into rapid r hythm. She has had intermittent problems with lower extremity edema. REVIEW OF SYSTEMS: CARDIOVASCULAR: As per HPI. NEURO: No history of stroke or TIA. GI: She has chronic nausea related to complications from gastric bypass surgery and does intermittently use a G J tube for her medications and for her food, but she also takes some oral medications and oral food. Last summer, in the setting of significant vomiting, she did have a minimal amount of hematemesis. She tells me that she did have scopes at one point with no active ulcerations. She has been on a proton pump inhibitor. Recently, her blood sugars have been poorly controlled. She does see an out patient packaging specialist. No recent dysuria. Otherwise, a full 10-point review of systems was perfo rmed and is negative. ALLERGIES: Azithromycin, erythromycin, metoclopramide, prochlorperazine. PAST MEDICAL HISTORY: 1. Morbid obesity. 2. Chronic hypoxic respiratory failure, on chronic oxygen therapy. 3. Sleep apnea, on CPAP at night with oxygen. 4. Depression. 5. Insulin-dependent diabetes. 6. Hypertension. 7. Chronic anemia. 8. Chronic hypokalemia. 9. Chronic low back pain with history of lumbar fusion. 10. Thyroid cancer. 11. Gastric bypass surgery that was not successful, and she has a GJ tube. 12. Status post thyroidectomy. 13. Status post right arm surgery. MEDICATIONS: Outpatient: Norvasc 5 mg daily, vitamin D3, Cymbalta 90 mg daily, hydrocodone/acetami nophen, insulin, Synthroid 450 mcg daily, Cytomel 5 mcg daily, Ativan, losartan 100 mg daily, Zaroxo ti 2.5 mg daily, omeprazole, potassium citrate as supplementation, promethazine, and Demadex 100 mg b.i.d. SOCIAL HISTORY: The patient lives alone. She does not smoke cigarettes or drink alcohol. FAMILY HISTORY: Mother with a possible ME. PHYSICAL EXAM: VITAL SIGNS: Blood pressure 126/55. Heart rate has ranged from 90s to 130, current ly in the 90s. Oxygen saturation 96% on 4 L nasal cannula. She is afebrile. Respiratory rate is 1 7. GENERAL: Chronically ill-appearing middle-aged female, intermittently tearful. HEENT: Sclerae are clear and free of jaundice. Mucous membranes are moist. Normocephalic, atraumatic. CARDIOVAS CULAR: JVP is less than 10. Carotids equal and 2+ without bruit. Regular rate and rhythm with sof t early systolic ejection murmur at the base. No S3, S4, or rub. LUNGS: Clear to auscultation alejandro aterally without wheeze, rhonchi, or rales. ABDOMEN: Obese and diffusely minimally tender. No obv ious masses. No bruits. I cannot feel her spleen or liver. She does have a GJ tube in place. EXT REMITIES: Warm and well perfused. 1+ pitting edema to the mid shins bilaterally. NEURO: Alert an d oriented x3 without gross focal neurological deficits. Appropriate mood and affect. LABORATORY DATA: White count 11.76, hematocrit 29.8, platelets 300. INR 1. Sodium 137, potassium 2.8, chloride 83, bicarb 40, BUN 42, creatinine 1.2, calcium 8.1. Troponin negative x2. BNP is 100 . TSH is 0.1. Urinalysis shows a high pH at 9, trace bacteriuria, 1-3 white blood cells and no red cells, negative leukocyte esterase, and negative urine nitrate. Four EKGs reviewed by me: The first 3 show sinus rhythm without ischemic changes. The 4th shows at rial fibrillation with a rapid ventricular response and diffuse repolarization abnormality. QT slig htly prolonged. Echocardiogram reviewed by me from yesterday is a very limited study. Overall normal LV systolic fu nction without obvious regional wall motion abnormalities. RV is difficult to ascertain. No obviou s valvular abnormalities. She did have an echocardiogram at [facility] in July 2014 whic h was also a limited study with overall normal LV systolic function. Nuclear stress test in 2013 at [facility] was negative according to the stress report. I do not have the radiology report, but the patient tells me that this was normal. Lower extremity ultrasound negative for DVT, although this is a limited study. Chest x-ray reviewed by me: No pneumonia or effusion. Cardiomegaly. ASSESSMENT AND PLAN: A 51-year-old female with multiple medical problems, largely driven by her mor bid obesity. She was admitted with what appears to be acute on chronic diastolic left heart failure and certainly some component of right heart failure she may have been tipped in. Even though her B MILK HANDLER is normal, this value can be falsely low in obese patients. It is possible that intermittent atr ial fibrillation caused her weight gain and lower extremity edema. She also has a low TSH, presumab ly purposefully low due to her history of thyroid cancer, but I wonder if high doses of thyroid horm one supplementation are contributing to her atrial fibrillation. It is also possible that her sleep apnea, while treated, is incompletely treated and she may need reevaluation for this as an outpatie nt. 1. Atrial fibrillation: Currently in sinus rhythm. Etiology of paroxysmal atrial fibrillation is multifactorial, as detailed above. We will discuss with Dr. Boyer whether we should decrease her th yroid supplementation. She does have a CHADS2-VASc score of at least 3, and therefore I would recom mend Eliquis 5 mg twice daily after her neurosurgery, which is scheduled for next week. We did disc uss the thromboembolic risk associated with paroxysmal atrial fibrillation and she understands this. She will continue low-dose oral diltiazem, which was started this admission. [facility] No role for antiarrhythmic drug therapy at this juncture unless she has recurrent a rrhythmia that is difficult to control. Sotalol would be relatively contraindicated given her borde rline prolonged QT interval. I think she is too young for amiodarone. Could consider propafenone. 2. Diastolic heart failure with perhaps with some component of right heart failure: Agree with IV diuresis. We have added spironolactone. Potassium supplementation. 3. Hypokalemia: This is due to her diuretics. Replete as necessary. Add spironolactone. Conside r stopping Zaroxolyn. 4. Hypertension: Currently well controlled. 5. Chronic hypoxic respiratory failure and a history of sleep apnea: She does have a wire roller . She may need reevaluation of her CPAP therapy. 6. Diabetes: Per Internal Medicine. 7. Chronic low back pain with upcoming redo lumbar fusion: At this point, I would like to have her more medically stable, but I think it is possible she will be able to have her surgery as planned. Thank for allowing us to participate in the patient's care. We will follow with you. Copy requested to: KING SAMAYOA /[id number]/MODL
[2016-11-25 18:20] LABS: RANDOM URINE PROTEIN 10 mg/dL
[2016-11-25] MEDS: ENOXAPARIN 60 MG/0.6 ML SYR SC SCH (20:53)
[2016-11-26] MEDS: DILTIAZEM 30 MG TAB PO SCH ×4 (01:25→15:37)
[2016-11-26] MEDS: PROMETHAZINE HCL 25 MG TAB PO SCH ×4 (01:44→13:57)
[2016-11-26] MEDS: POTASSIUM CITRATE PO SCH ×3 (05:43→13:59)
[2016-11-26] MEDS: CITRIC ACID PO SCH ×3 (05:43→13:59)
[2016-11-26] MEDS ORDERED: LEVOTHYROXINE 150 MCG TAB PO SCH (06:00)
[2016-11-26] MEDS: HYDROCOD/APAP 7.5/325 IN 15ML UDCUP PO PRN (06:18)
[2016-11-26 07:14] VITALS: O2SAT 96
[2016-11-26 07:15] LABS: HEMATOCRIT 30.2 % (38.0-47.0); HEMOGLOBIN 9.6 g/dL (12.6-16.3); MEAN CELL HEMOGLOBIN 28.9 pg (27.9-34.1); MEAN CELL HEMOGLOBIN CONCENTR. 31.8 g/dL (32.4-36.7); RED BLOOD CELL COUNT 3.32 10^6/uL (4.18-5.33); RED CELL DISTRIBUTION WIDTH 15.5 % (11.5-15.2)
[2016-11-26 07:44] LABS: ANION GAP 10 mEq/L (8-16); CALCIUM 8.6 mg/dL (8.5-10.4); CARBON DIOXIDE 37 mEq/l (22-31); CHLORIDE 90 mEq/L (97-110); GLOMERULAR FILTRATION RATE 58; GLUCOSE 201 mg/dL (70-100); POTASSIUM 3.7 mEq/L (3.5-5.2); SODIUM 137 mEq/L (134-144)
[2016-11-26] MEDS ORDERED: POTASSIUM CL 10 MEQ TAB PO ONE ×2 (07:53→10:30)
[2016-11-26] MEDS ORDERED: NON-FORMULARY NEW DRUG (Omeprazole [Omeprazole] 40 MG) PO SCH (09:00)
[2016-11-26] MEDS ORDERED: LIOTHYRONINE SODIUM 5 MCG TAB PO SCH (09:00)
[2016-11-26] MEDS ORDERED: amLODIPine BESYLATE 5 MG TAB PO SCH (09:00)
[2016-11-26] MEDS: Insulin Degludec [Tresiba Flextouch U-200] SQ SCH (09:36)
[2016-11-26] MEDS: INSULIN LISPRO 100 UNIT/ML SC SCH ×2 (09:37→13:59)
[2016-11-26] MEDS: ENOXAPARIN 60 MG/0.6 ML SYR SC SCH (09:38)
[2016-11-26] MEDS: METOLAZONE 2.5 MG TAB PO SCH (09:42)
[2016-11-26] MEDS: SPIRONOLACTONE 25 MG TAB PO SCH (09:42)
[2016-11-26] MEDS: LOSARTAN POTASSIUM 50 MG TAB PO SCH ×2 (09:42→14:01)
[2016-11-26] MEDS: PANTOPRAZOLE SODIUM 40 MG TAB PO SCH ×2 (09:42→14:02)
[2016-11-26 11:18] VITALS: BP 142/76; RESP 18; TEMP 98.4
[2016-11-26] MEDS ORDERED: FUROSEMIDE 100 MG/10 ML VIAL IVP ONE ×2 (11:38→12:00)
[2016-11-26] MEDS: DULoxetine 30 MG CAP PO SCH (12:12)
[2016-11-26] MEDS: DULoxetine 60 MG CAP PO SCH (12:12)
--- NOTE | 2016-11-26 13:07 | GDS ---
DISCHARGE DIAGNOSES: 1. Acute on chronic lower extremity edema. 2. Acute diastolic heart failure in the setting of atrial fibrillation with rapid ventricular respo nse. 3. Severe hypokalemia. 4. Acute on chronic respiratory failure. 5. Chronic nausea. 6. Type 2 diabetes mellitus, requiring insulin. 7. Obstructive sleep apnea. 8. History of thyroid cancer, status post thyroidectomy. 9. Chronic low back pain. 10. Chronic diarrhea. 11. Chronic kidney disease. CONSULTANTS: Dr. Ana Means, [facility]. HOSPITAL COURSE AND STAY BY PROBLEM: 1. Acute on chronic lower extremity edema: The patient was admitted to the hospital where she was treated with high-dose IV furosemide at 80 mg IV b.i.d. She was noted to be in atrial fibrillation with RVR and was started on a diltiazem drip. The patient then spontaneously converted back to norm al sinus rhythm and was started on oral diltiazem 30 mg p.o. q.6 hours. She was seen by Dr. Miguelangel [facility], who calculated her [id number] score as 3 and recommended that she start anticoagula tion after her planned back surgery next week. She will need outpatient followup for her atrial fib rillation. 2. Hypokalemia: The patient's potassium was replenished during this hospital stay. She was also s tarted on Aldactone at a dose of 25 mg daily. On day of discharge, the patient states that she feels well and is agreeable to be discharged home. She plans to pursue back surgery next week with Dr. Salter. PHYSICAL EXAM: VITAL SIGNS: On day of discharge, blood pressure 142/76, pulse 104, respiratory rat e 18, O2 saturation 96% on 4 L. Temperature afebrile. GENERAL: No acute distress. HEART: S1, S2 . LUNGS: Clear. ABDOMEN: Soft. EXTREMITIES: Improving lower extremity edema. LABS AND STUDIES: Lower extremity venous Doppler done on 11/24/2016 was limited but did not reveal any obvious DVTs. DISCHARGE MEDICATIONS: Please refer to discharge medication reconciliation in [facility] for full det ails. Below is a preliminary list. New medications on hospital discharge: Aldactone 25 mg daily. Home medications that were held: Norvasc 5 mg daily. All other home medications were continued at her usual home dosages. DISCHARGE INSTRUCTIONS: The patient will be discharged from the hospital where she should have her metabolic panel checked on Thursday to ensure her potassium is normal. She should follow up with Dr. Means at [facility], as well as with Dr. Salter for her planned surgery next week. Once ag ain, she should be started on anticoagulation after her spine surgery for stroke risk reduction in t he setting of atrial fibrillation. Copy requested to: Primary Care Provider /[id number]/MODL
[2016-11-26 15:38] VITALS: PULSE 98
[2016-11-27] MEDS ORDERED: CHOLECALCIFEROL VIT D3 50,000 UNIT CAP PO SCH (09:55)
== END 2016-11-26 15:44 | disposition home or self-care (01) | DRG 291 ==
LOC: F3E 16:47 → F2W 11-25 01:51
PROVIDERS: ADMIT Internal Medicine; ATTEND Family Medicine
DX: I13.0 Hypertensive heart and chronic kidney disease with heart failure and stage 1 through stage 4 chronic kidney disease, or unspecified chronic kidney disease (principal); I50.33 Acute on chronic diastolic (congestive) heart failure; N18.9 Chronic kidney disease, unspecified; J96.21 Acute and chronic respiratory failure with hypoxia; I48.0 Paroxysmal atrial fibrillation; E11.9 Type 2 diabetes mellitus without complications; E66.01 Morbid (severe) obesity due to excess calories; G47.33 Obstructive sleep apnea (adult) (pediatric); E87.6 Hypokalemia; Z99.81 Dependence on supplemental oxygen; Z85.850 Personal history of malignant neoplasm of thyroid
CPT/HCPCS: 96365; 96366; J0690; J1644; J1650; J1815; J2550

== ENCOUNTER → 2016-12-01 | Day surgery (SDC) | payer OTHER ==
[~2016-12-01] MED LIST changes: -CEFAZOLIN 2 GM/DEXTROSE/100 ML BAG IV ONE; -CHLORHEXIDINE GLUC HIBICLENS 118 ML BTL TP ONE; -DEXAMETHASONE 10 MG/ML VIAL IVP ONE; -DEXAMETHASONE 10 MG/ML VIAL ONE; -LIDOCAINE 1% 5 ML SDV ID PRN; -LR 1,000 ML IV ONE; -fentaNYL 100 MCG/2 ML INJ IT ONE; -morphINE PF 5 MG/10 ML INJ IT ONE
== END | disposition home or self-care (01) ==
LOC: UNDOADMIN 08:33 → F3N 08:33 → FSGY 08:34 → EDSTATUS 12:15
PROVIDERS: ATTEND Neurological Surgery
DX: M51.36 Other intervertebral disc degeneration, lumbar region (principal); Z53.09 Procedure and treatment not carried out because of other contraindication
CPT/HCPCS: J0690

== ENCOUNTER → 2017-02-18 | Day surgery (SDC) | payer OTHER | END | disposition home or self-care (01) | LOC: FIMAGING 14:13 | PROVIDERS: ATTEND Family Medicine | DX: Z43.4 Encounter for attention to other artificial openings of digestive tract (principal); Z53.9 Procedure and treatment not carried out, unspecified reason ==

== ENCOUNTER 2017-02-25 08:24 | Day surgery (SDC) | payer OTHER ==
[2017-02-25] MEDS ORDERED: PROMETHAZINE HCL 25 MG/ML INJ ONE (09:19)
[2017-02-25] MEDS ORDERED: MIDAZOLAM 2 MG/2 ML VIAL ONE ×2 (09:20→10:23)
[2017-02-25] MEDS ORDERED: fentaNYL 100 MCG/2 ML INJ ONE ×2 (09:20→10:25)
[2017-02-25] MEDS ORDERED: FLUMAZENIL 0.5 MG/5 ML MDV IVP ONE (10:24)
[2017-02-25] MEDS ORDERED: NALOXONE HCL 0.4 MG/ML INJ ONE (10:25)
[2017-02-25] MEDS ORDERED: IOPAMIDOL (ISOVUE-300) 100 ML BTL ONE (10:59)
== END 2017-02-25 12:00 | disposition home or self-care (01) ==
LOC: FIMAGING 08:24
PROVIDERS: ATTEND Family Medicine
PROC: 0DP07UZ Removal of Feeding Device from Upper Intestinal Tract, Via Natural or Artificial Opening (ICD-10-PCS; principal; 2017-02-25 10:55)
PROC: 0DH67UZ Insertion of Feeding Device into Stomach, Via Natural or Artificial Opening (ICD-10-PCS; principal; 2017-02-25 10:55)
DX: K94.23 Gastrostomy malfunction (principal); I10 Essential (primary) hypertension; E11.9 Type 2 diabetes mellitus without complications; G47.30 Sleep apnea, unspecified; I48.91 Unspecified atrial fibrillation; L97.429 Non-pressure chronic ulcer of left heel and midfoot with unspecified severity
CPT/HCPCS: 49452; 99152; C1769; J2250; J2310; J2550; J3010; Q9967

== ENCOUNTER → 2017-02-26 | Outpatient (CLI) | payer OTHER | LOC: BMCIMAGING 09:18 | PROVIDERS: ATTEND Podiatrist Foot & Ankle Surgery | DX: M79.672 Pain in left foot (principal) ==

== ENCOUNTER → 2017-06-10 | Outpatient (CLI) | payer OTHER | LOC: BMCIMAGING 14:09 | PROVIDERS: ATTEND Podiatrist Foot & Ankle Surgery | DX: M79.671 Pain in right foot (principal) ==